=== PATIENT | male | born 1980 | race Caucasian/White ===

== ENCOUNTER 2018-05-08 12:38 | Emergency (ER) | payer OTHER ==
[2018-05-08 12:46] VITALS: BP 133/74; PULSE 78; RESP 18; TEMP 98.2; O2SAT 98
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
== END 2018-05-08 14:25 | disposition home or self-care (01) ==
LOC: H.ER 12:38
DX: M62.838 Other muscle spasm (principal); V43.52XA Car driver injured in collision with other type car in traffic accident, initial encounter; Y92.410 Unspecified street and highway as the place of occurrence of the external cause; K50.90 Crohn's disease, unspecified, without complications